=== PATIENT | male | born 1985 | race Caucasian/White ===

== ENCOUNTER 2019-01-30 01:37 | Emergency (ER) | payer SELFPAY ==
--- NOTE | 2019-01-30 02:48 | ER ---
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 He has been out of his levothyroxine 300 mcg for 7 months. He is now having fatigue, numbness/tingling of hands and edema to lower exts. Pt has just recently moved to the area and has been unable to obtain the needed labs his dr ordered due to the cost. Transition of care: patient was not received from another setting of care. Onset of symptoms was June 2018. Risk Assessment: Do you want to hurt yourself or someone else? Patient reports no desire to harm self or others. Initial Sepsis Screen: Does the patient meet any 2 criteria? HR > 90 bpm. Yes Does the patient have a suspected source of infection? No. Patient's initial sepsis screen is negative. Care prior to arrival: None. 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 - Social history:: Smoking status: Patient uses tobacco products, smokes one pack cigarettes per day. Patient uses street drugs, marijuana, Patient/guardian denies using alcohol. - Ebola Screening: : Patient negative for fever greater than or equal to 101.5 degrees Fahrenheit, and additional compatible Ebola Virus Disease symptoms Patient denies exposure to infectious person Patient denies travel to an Ebola-affected area in the 21 days before illness onset. Screenin:40 Abuse screen: Denies threats or abuse. Nutritional screening: No deficits noted. fc Tuberculosis screening: No symptoms or risk factors identified. Fall Risk None identified. Assessment: 02:07 General: Appears in no apparent distress. uncomfortable, Behavior is calm, cooperative, jd3 appropriate for age, Reports fatigue for >3 days. Pain: Complains of pain in generalized Quality of pain is described as burning, aching. Neuro: Level of Consciousness is awake, alert, obeys commands, Oriented to person, place, time, situation, Appropriate for age. Cardiovascular: Heart tones S1 S2 present Capillary refill < 3 seconds Patient's skin is warm and dry. Respiratory: Airway is patent Respiratory effort is even, unlabored, Respiratory pattern is regular, symmetrical, Breath sounds are clear bilaterally. GI: Abdomen is round non-distended, Bowel sounds present X 4 quads. Abd is soft and non tender X 4 quads. Patient currently denies nausea, vomiting. : No signs and/or symptoms were reported regarding the genitourinary system. EENT: No signs and/or symptoms were reported regarding the EENT system. Derm: Skin is intact, Skin is dry, Skin is normal, Skin temperature is warm. Musculoskeletal: Circulation, motion, and sensation intact. Range of motion: intact in all extremities, Reports swelling in FELI legs, ankles, and hands. Vital Signs: 01:40 BP 147 / 107; Pulse 98; Resp 18; Temp 97.5(O); Pulse Ox 100% on R/A; Weight 79.38 kg fc (R); Height 5 ft. 9 in. (175.26 cm) (R); Pain 0/10; 02:30 BP 141 / 91; Pulse 95; Resp 17 S; Pulse Ox 100% on R/A; jd3 01:40 Body Mass Index 25.84 (79.38 kg, 175.26 cm) ED Course: 01:39 Patient arrived in ED. do 01:40 Arm band placed on Patient placed in an exam room, on a stretcher. fc 01:40 Patient has correct armband on for positive identification. Bed in low position. Call light in reach. Pulse ox on. NIBP on. 01:40 No provider procedures requiring assistance completed. fc 01:49 Moreno Lua, RN is Primary Nurse. jb4 02:02 Triage completed. fc 02:05 Anthony Suárez MD is Attending Physician. tw4 02:07 Primary Nurse role handed off by Moreno uLa, RN jd3 02:07 Derek Bose RN is Primary Nurse. jd3 02:31 Patient did not have IV access during this emergency room visit. jd3 Administered Medications: No medications were administered Outcome: 02:48 Discharge ordered by . tw4 02:48 Medical screen evaluation completed per provider. jd3 02:48 Condition: stable 02:48 Instructed on follow up and referral plans. Demonstrated understanding of instructions. 02:49 Patient left the ED. jd3 Signatures: Carol Carrasquillo, RN RN Kathy Last James RN RN jb4 Derek Bsoe RN RN jd3 Anthony Suárez MD MD tw4
--- NOTE | 2019-01-31 02:57 | EDPHYS ---
Physician Documentation [facility] Name: Adán Cote Jr Age: 33 yrs Sex: Male : 1985 Arrival Date: 01/30/2019 Time: 01:39 Bed 4 Private MD: ED Physician Anthony Suárez HPI: 01/30 05:22 This 33 yrs old Male presents to ER via Ambulatory with complaints of tw4 Medication Refill, Numbness Of Arm, Fatigue. 05:22 The patient presents to the emergency department requesting refill(s) for: levothyroid. tw4 The patient chronically suffers from weakness. The patient has not experienced similar symptoms in the past. 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 - Social history:: Smoking status: Patient uses tobacco products, smokes one pack cigarettes per day. Patient uses street drugs, marijuana, Patient/guardian denies using alcohol. - Ebola Screening: : Patient negative for fever greater than or equal to 101.5 degrees Fahrenheit, and additional compatible Ebola Virus Disease symptoms Patient denies exposure to infectious person Patient denies travel to an Ebola-affected area in the 21 days before illness onset. ROS: 05:22 Constitutional: Negative for fever, chills, and weight loss, Eyes: Negative for injury, tw4 pain, redness, and discharge, Cardiovascular: Negative for chest pain, palpitations, and edema, Respiratory: Negative for shortness of breath, cough, wheezing, and pleuritic chest pain, Abdomen/GI: Negative for abdominal pain, nausea, vomiting, diarrhea, and constipation, MS/Extremity: Negative for injury and deformity. 05:22 Neuro: Positive for weakness, Negative for altered mental status, dizziness, seizure activity, speech changes, syncope, near syncope. Exam: 05:22 Constitutional: This is a well developed, well nourished patient who is awake, alert, tw4 and in no acute distress. Head/Face: Normocephalic, atraumatic. Chest/axilla: Normal chest wall appearance and motion. Nontender with no deformity. No lesions are appreciated. Cardiovascular: Regular rate and rhythm with a normal S1 and S2. No gallops, murmurs, or rubs. Normal PMI, no JVD. No pulse deficits. Respiratory: Lungs have equal breath sounds bilaterally, clear to auscultation and percussion. No rales, rhonchi or wheezes noted. No increased work of breathing, no retractions or nasal flaring. Abdomen/GI: Soft, non-tender, with normal bowel sounds. No distension or tympany. No guarding or rebound. No evidence of tenderness throughout. Back: No spinal tenderness. No costovertebral tenderness. Full range of motion. MS/ Extremity: Pulses equal, no cyanosis. Neurovascular intact. Full, normal range of motion. Neuro: Awake and alert, GCS 15, oriented to person, place, time, and situation. Cranial nerves II-XII grossly intact. Motor strength 5/5 in all extremities. Sensory grossly intact. Cerebellar exam normal. Normal gait. Vital Signs: 01:40 BP 147 / 107; Pulse 98; Resp 18; Temp 97.5(O); Pulse Ox 100% on R/A; Weight 79.38 kg (R); Height 5 ft. 9 in. (175.26 cm) (R); Pain 0/10; 02:30 BP 141 / 91; Pulse 95; Resp 17 S; Pulse Ox 100% on R/A; jd3 01:40 Body Mass Index 25.84 (79.38 kg, 175.26 cm) MDM: 02:06 Patient medically screened. tw4 05:22 Data reviewed: vital signs, nurses notes. Test interpretation: by ED physician or tw4 midlevel provider: ECG. Medical screen evaluation completed. EMTALA emergency medical condition absent. Administered Medications: No medications were administered Disposition: 01/30/19 02:48 Discharged to Home. Impression: Chronic pain, not elsewhere classified. - Condition is Stable. - Medication Reconciliation Form, Thank You Letter, Antibiotic Education, Prescription Opioid Use form. - Follow up: Private Physician; When: Upon discharge from the Emergency Department; Reason: Recheck today's complaints, Continuance of care. - Problem is new. - Symptoms have improved. Signatures: Carol Carrasquillo RN RN Derek Bose RN RN j Anthony Suárez MD MD tw4 Corrections: (The following items were deleted from the chart) 02:49 02:48 01/30/2019 02:48 Discharged to Home. Impression: Chronic pain, not elsewhere jd3 classified. Condition is Stable. Forms are Medication Reconciliation Form, Thank You Letter, Antibiotic Education, Prescription Opioid Use. Follow up: Private Physician; When: Upon discharge from the Emergency Department; Reason: Recheck today's complaints, Continuance of care. Problem is new. Symptoms have improved. tw4
== END 2019-01-30 02:49 | disposition home or self-care (01) ==
LOC: ER 01:37
DX: G89.29 Other chronic pain (principal); Z76.0 Encounter for issue of repeat prescription; E03.9 Hypothyroidism, unspecified; F17.210 Nicotine dependence, cigarettes, uncomplicated
CPT/HCPCS: 99283